=== PATIENT | female | born 1955 | race Caucasian/White ===

== ENCOUNTER → 2025-01-20 | Outpatient (CLI) | payer MEDICARE, SELFPAY ==
--- NOTE | 2025-01-20 10:29 | RAD_ITS ---
PROCEDURE: HAND MIN 3 VIEWS 01/20/2025 REASON FOR EXAM: PAIN TECHNIQUE: Procedure Code: CHRISTOPHER Modality: DX Procedure: HAND MIN 3 VIEWS Left hand three views COMPARISON: None FINDINGS: There is no fracture or dislocation. Joint spaces are maintained. There is no significant erosive disease. Mineralization is normal. There is no soft tissue abnormality or radiopaque foreign body. RAD/Hand Min 3 Views IMPRESSION: No fracture or dislocation is identified. Reading Location: [facility]
--- NOTE | 2025-01-20 10:29 | RAD_ITS ---
PROCEDURE: HAND MIN 3 VIEWS 01/20/2025 REASON FOR EXAM: PAIN TECHNIQUE: Procedure Code: CHRISTOPHER Modality: DX Procedure: HAND MIN 3 VIEWS Laterality: Right hand four views COMPARISON: None FINDINGS: There is severe subluxation, partial dislocation of the 2nd, 3rd, and 4th metatarsophalangeal articulations with degenerative change and soft tissue swelling. Ulnar deviation is noted at the 2nd and 3rd metacarpophalangeal articulation. There is a 0.45 cm subcortical cyst or erosion in the capitate. Mineralization is normal. There is no visible atherosclerosis. RAD/Hand Min 3 Views IMPRESSION: There is severe subluxation, partial dislocation of the 2nd, 3rd, and 4th metat arsophalangeal articulations with degenerative change and soft tissue swelling. Ulnar deviation is noted at the 2nd and 3rd metacarpophalangeal articulation. There is a 0.45 cm subcortical cyst or erosion in the capitate. Reading Location: [facility]
[2025-01-20 12:25] LABS: Hematocrit 40.0 % (37-47); Hemoglobin 12.9 g/dL (12.0-15.0); Immature Granulocytes Count 0.010 X10^3/uL (0.0-0.0); Mean Corp Hgb Conc 32.3 g/dL (32-36); Mean Corpuscular Volume 90.3 fL (81-99); Mean Platelet Vol. 9.1 fl (6.2-12.0); NRBC Flagged by Analyzer 0 % (0-5); Platelet Count 391 K/mm3 (150-450); RBC Distribution Width CV 14.3 % (11.6-14.6); RBC Distribution Width SD 48.0 fl (35.1-43.9); Red Blood Count 4.43 M/mm3 (4.2-5.4); White Blood Count 6.8 K/mm3 (4.4-11.0)
[2025-01-20 13:19] LABS: AST(SGOT) 19 U/L (<=31); Alanine Aminotransfer ALT/SGPT 16 U/L (<=34); Albumin, Serum 4.8 g/dL (3.4-4.8); Alkaline Phosphatase 78 U/L (35-104); Anion Gap 16 (5-15); BUN 19 mg/dL (4-19); BUN/Creat Ratio 24.5 RATIO (10-20); CRP 4.54 mg/L (0.0-3.0); Calcium,Total 10.3 mg/dL (7.6-11.0); Carbon Dioxide 24.8 mmol/L (21.0-32.0); Chloride 99 mmol/L (98-108); Globulin 2.9 g/dL (2.2-4.2); Glucose 105 mg/dL (70-99); Hepatitis B Surface Antigen Nonreactive (Nonreactive); Hepatitis C Antibody Nonreactive (Nonreactive); Potassium 4.7 mmol/L (3.3-5.1)
[2025-01-22 08:09] LABS: ANTINUCLEAR ANTIBODIES DIRECT Negative (Negative)
== END | disposition home or self-care (01) ==
LOC: MTLAB 10:20
PROVIDERS: Referring Provider Internal Medicine Rheumatology; Visit Provider Internal Medicine Rheumatology
DX: M06.4 Inflammatory polyarthropathy (principal); M79.641 Pain in right hand; M79.642 Pain in left hand; Z79.899 Other long term (current) drug therapy
CPT/HCPCS: 36415; 73130; 80053; 85025; 85652; 86038; 86140; 86200; 86431; 86706; 86803; 87340